=== PATIENT | male | born 1965 | race Caucasian/White ===

== ENCOUNTER 2025-03-26 09:15 | Emergency (ER) | payer OTHER, SELFPAY ==
[2025-03-26 09:20] VITALS: BP 146/94
[2025-03-26 10:08] VITALS: BMI 23.4
[2025-03-26 10:11] VITALS: BP 164/106
[2025-03-26 10:12] VITALS: BP 143/95
--- NOTE | 2025-03-26 10:26 | ED.GENMED ---
History of Present Illness
<Marlys Thakur DO, Resident - Last Filed: 03/26/25 12:08>
General
Chief Complaint: Musculo-Skeletal Complaint
Source: patient
Exam Limitations: none
Time Seen by Provider: 03/26/25 09:55
Nursing documentation reviewed up to this point in time: agreed with
History of Present Illness
History of Present Illness:
Patient is a 59 year old male with no pertinent PMH, presenting with MSK injury to the left upper extremity. Patient was lifting a heavy piece of plywood with his arms extended when he heard and felt tearing in the anterior left elbow area. He
experienced severe pain and then drove himself to the ED. Patient noticed that his muscle is 'higher up his arm than it should be,' and he notes increased pain with extension. Patient is holding his arm and flexion and is rating his current pain a
5/10. Patient did not take any pain medication prior to arrival. Patient denies all other ROS.
Past History
<Marlys Thakur DO, Resident - Last Filed: 03/26/25 12:08>
Past History
ED Past Medical History: Other (kidney stones)
ED Past Surgical History: Other (hernia repair)
Social History
Tobacco: Non-smoker
Alcohol: Occasional
Review of Systems
<Marlys Thakur DO, Resident - Last Filed: 03/26/25 12:08>
Review of Systems
Constitutional: Reports no symptoms
EENT: Reports no symptoms
Respiratory: Reports no symptoms
Cardiac: Reports no symptoms
ABD/GI: Reports no symptoms
: Reports no symptoms
Musculoskeletal: Reports muscle pain (left upper extremity) and back pain (occasional)
Skin: Reports no symptoms
Neurological: Reports no symptoms
Endocrine: Reports no symptoms
Hematologic/Lymphatic: Reports no symptoms
Psychiatric: Reports no symptoms
<Janice Wallis MD - Last Filed: 03/26/25 11:45>
Review of Systems
Allergies reviewed?: Yes
All Other Systems: ROS reviewed and negative except as documented in HPI and ROS
Phy Exam
<Marlys Thakur DO, Resident - Last Filed: 03/26/25 12:08>
General Physical Exam
General Presentation: well appearing and no apparent distress
General age: appears stated age
General Skin: warm and dry
General Habitus: normal
General Mental: alert
General Hydration: appears well hydrated
Neurological Exam
Neurological Exam: alert and oriented x3
Musculoskeletal Exam
Musculoskeletal Exam: other (left extremity held in flexion, bicep muscle pulled proximally and bulging, tender to palpation of anterior cubitus area)
Psychiatric Exam
Psychiatric Exam: normal mood/affect
<Janice Wallis MD - Last Filed: 03/26/25 11:45>
Physical Exam
Physical Exam:
Physical Exam
General: no apparent distress, not acutely ill, well uncomfortable appearing, atraumatic appearing face and head, smiling
Neck: supple. Nontender
Heart: s1/s2 regular rate and rhythm, no murmur. equal radial pulses.
Lungs: no acute respiratory distress. clear bilaterally
Abdomen: Soft
Neuro: alert and oriented. no focal neurological deficits. Equal sensation in hands bilaterally
Skin: no rash
Psychiatric: well kept. interactive and cooperative
Extremities: Patient cannot fully extend left elbow due to pain. When patient flexes left elbow, I am unable to palpate a feeling of a tendon at the insertion site of the elbow. Bicep muscle high rising in left upper arm.
Soft tissue tenderness left upper arm. No ecchymoses. Soft compartments. Strong pulses in bilateral hands.
Course
<Marlys Thakur DO, Resident - Last Filed: 03/26/25 12:08>
Orders/Labs/Results
Orders:
Orders
03/26/25 09:29
CR Elbow - Left Min 3 Views Urgent
Comment:
Reason For Exam: injury pain in area just above elbow
Vital Signs
Initial and Last Documented VS:
Initial Vital Signs
Temp Pulse Resp BP Pulse Ox
98.4 F 86 18 146/94 97
03/26/25 09:20 03/26/25 09:20 03/26/25 09:20 03/26/25 09:20 03/26/25 09:20
Last Documented Vital Signs
Temp Pulse Resp BP Pulse Ox
98.4 F 63 20 143/95 96
03/26/25 09:20 03/26/25 10:16 03/26/25 10:16 03/26/25 10:12 03/26/25 10:26
<Janice Wallis MD - Last Filed: 03/26/25 11:45>
Orders/Labs/Results
Orders:
Orders
03/26/25 09:29
CR Elbow - Left Min 3 Views Urgent
Comment:
Reason For Exam: injury pain in area just above elbow
Vital Signs
Initial and Last Documented VS:
Initial Vital Signs
Temp Pulse Resp BP Pulse Ox
98.4 F 86 18 146/94 97
03/26/25 09:20 03/26/25 09:20 03/26/25 09:20 03/26/25 09:20 03/26/25 09:20
Last Documented Vital Signs
Temp Pulse Resp BP Pulse Ox
98.4 F 63 20 143/95 96
03/26/25 09:20 03/26/25 10:16 03/26/25 10:16 03/26/25 10:12 03/26/25 10:26
<Marlys Thakur DO, - Last Filed: 03/26/25 12:08>
MDM/Problems Addressed
Differential Diagnosis Includes:
biceps tendon tear,
<Janice Wallis MD - Last Filed: 03/26/25 11:45>
MDM/Problems Addressed
Differential Diagnosis Includes:
biceps tendon tear, bicep muscle tear, left upper arm contusion
MDM/Problems Addressed:
Patient presents with acute left upper arm pain and swelling
Acute Exacerbation and/or Progression of Chronic Illness:
Patient is acutely hypertensive but there is no sign of neurological abnormalities or CHF. I suspect high blood pressure is due to anxiety and pain.
Acute Exacerbation and/or Progression of Chronic Illness: HTN
<Marlys Thakur DO, Resident - Last Filed: 03/26/25 12:08>
*Radiology
Radiology exam reviewed: radiology read reviewed (No acute fracture or malalignment noted)
*Pulse Oximetry
SaO2: 96
Oxygen Mode of Delivery: Room air
Patient hypoxic: no
<Janice Wallis MD - Last Filed: 03/26/25 11:45>
*Radiology
Radiology exam reviewed: preliminary read by ED provider (Left elbow reviewed by me. No acute fracture seen)
*Pulse Oximetry
Comment: 96% on room air
*EKG
Interpreted by ED Provider?: NA
*Maintenance Specialist Interpretation
Rate: Maintenance Specialist- N/A
*Critical Care Note
Total Time (30-74mins, 75-104mins- exclusive of procedures): Not Applicable
Data Reviewed
Source: patient
<Janice Wallis MD - Last Filed: 03/26/25 11:45>
Patient Management
Social determinants of health affecting care: Living situation and Strong social support
Discussion with other providers: Other (Dr. Bhuipnder Santiago who reports that patient can go home and follow-up with him early next week and he will arrange an MRI. Patient can be offered sling for comfort)
Escalation/DeEscalation of care consider admission/obs:
Patient is neurovascularly stable and appears well and comfortable. Patient will make sure to follow-up with Dr. Santiago for reassessment and MRI and for further management
ED Attending Note
<Marlys Thakur DO, Resident - Last Filed: 03/26/25 12:08>
-
Portions of this chart may have been created with voice recognition software.� Occasional wrong word or��sound alike� substitutions may have occurred due to the inherent limitations of voice recognition software.
Discharge Plan
Departure
Patient Disposition: Home (Routine Discharge)
Date of Disposition: 03/26/25
Time of Disposition: 11:46
Patient with high blood pressure during this ER visit?: Yes
Condition: Good
Covid-19: Not Applicable
Discharge Problem:
Tear of distal tendon of biceps
Instructions: Biceps Tendon Rupture, BLOOD PRESSURE
Referrals:
Bhupinder Santiago MD [Active, Orthopedics]
Referral Note: Call today to schedule an appointment for early next week
Sailaja Mei CRNP [Family Provider, Family Practice]
Activity Restrictions/Additional Instructions:
You can take 600 mg of Advil/Motrin every 6-8 hours with food for pain.
Interventions
Interventions:
*Risk Screen - Suicide Last Done: 03/26/25 09:25
*General Assessment Last Done: 03/26/25 10:08
*Neglect/Abuse Screening Last Done: 03/26/25 10:08
*ED- Fall Risk Assessment Last Done: 03/26/25 10:08
*ED COVID-19 Vaccine History Last Done: 03/26/25 10:08
ED-Musculoskeletal Assessment Last Done: 03/26/25 10:08
Discharge Date and Time
Print Language: SLOVAK
[2025-03-26 12:19] VITALS: BP 141/99
== END 2025-03-26 12:20 | disposition home or self-care (01) ==
LOC: EMR 09:15
PROVIDERS: EMERGENCY PHYSICIAN Emergency Medicine; FAMILY PHYSICIAN Nurse Practitioner
DX: S46.212A Strain of muscle, fascia and tendon of other parts of biceps, left arm, initial encounter (principal); X50.0XXA Overexertion from strenuous movement or load, initial encounter; R03.0 Elevated blood-pressure reading, without diagnosis of hypertension
CPT/HCPCS: 99283; 73080

== ENCOUNTER 2025-03-31 06:21 | Day surgery (SDC) | payer OTHER, SELFPAY ==
[2025-03-31 12:13] VITALS: BP 150/90
[2025-03-31] MEDS: TYLENOL 1000 MG PO (12:21)
[2025-03-31] MEDS: CELEBREX 200 MG PO (12:22)
[2025-03-31 16:15] VITALS: BP 150/90
[2025-03-31 16:16] VITALS: BP 140/91
[2025-03-31 16:45] VITALS: BP 151/101
[2025-03-31 17:00] VITALS: BP 160/105
[2025-03-31 17:15] VITALS: BP 155/104
== END 2025-03-31 17:24 | disposition home or self-care (01) ==
LOC: SDS 06:21
PROVIDERS: ATTENDING PHYSICIAN Orthopaedic Surgery Hand Surgery
DX: S46.212A Strain of muscle, fascia and tendon of other parts of biceps, left arm, initial encounter (principal); X58.XXXA Exposure to other specified factors, initial encounter
CPT/HCPCS: 24342

== ENCOUNTER → 2025-08-17 07:57 | Outpatient (REF) | payer OTHER, SELFPAY | LOC: RAD 07:57 | PROVIDERS: ATTENDING PHYSICIAN Specialist | DX: N13.30 Unspecified hydronephrosis (principal) | CPT/HCPCS: 76770 ==